=== PATIENT | male | born 1980 | race Caucasian/White ===

== ENCOUNTER 2016-04-20 06:06 | Observation (INO) | payer SELFPAY ==
--- NOTE | ~2016-04-20 | DS ---
Discharge Summary [facility] [address] [place]. [address] NAME: JESSE BARBOZA : 80 STATUS : DIS Colleen PAT#: [id number] AGE: 35 ADM/REG DATE : 04/20/16 MR#: [id number] REPORT SERV DATE: 04/22/16 DICTATED BY: SANJIV BLACKBURN DATE: 04/21/16 REPORT STATUS : Draft TRANSCRIBED BY: MODL DATE: 04/21/16 ADMISSION DATE: 04/20/2016 DISCHARGE DATE: 04/21/2016 DISCHARGE DIAGNOSES: 1. Left arm abscess of unclear etiology. 2. Smoking. CONSULTS: None. PROCEDURES: None. HOSPITAL COURSE: This is a 35-year-old gentleman who was admitted to the hospital with a left arm abscess. For details, please refer to my own H and P from yesterday. In summary, the patient has developed a right arm abscess for unclear reasons. It was I and D'd at an outside ER which after that the patient's symptoms worsened. The patient was admitted with plans for the abscess drainage under CT. However, the patient's abscess started draining a lot more and better after he arrived to the hospital. Throughout the hospital, the patient remained afebrile and the patient's white blood cell count remained normal. The patient's procalcitonin level was also normal. With increasing drainage from the previous I and D site, the redness in his left arm was actually improving spontaneously, even though I held off on giving him any antibiotics until the CT-guided drainage. It was felt that the patient should probably do just fine as an outpatient, continued on p.o. Bactrim that he was already prescribed at home. The patient is thus being discharged home with close outpatient followup instructions. DISCHARGE MEDICATIONS: P.o. Bactrim for a 10-day course. Otherwise, no other medications. DISPOSITION: Discharged to home. FOLLOWUP: Please establish care and be followed as an outpatient in the next one to two weeks. A total of 25 minutes spent in coordinating this patient's discharge today. LILLIE/DONNY Sanjiv Blackburn MD / [id number] CC: Sanjiv Blackburn MD
--- NOTE | ~2016-04-20 | HP ---
History And Physical [address] [place]. [address] NAME: JESSE BARBOZA : 80 STATUS : ADM IN [facility]#: [id number] AGE: 35 ADM/REG DATE : 04/20/16 MR#: [id number] REPORT SERV DATE: 04/20/16 DICTATED BY: SANJIV BLACKBURN DATE: 04/20/16 REPORT STATUS : Draft TRANSCRIBED BY: MODL DATE: 04/20/16 DATE OF ADMISSION: 04/20/2016 CHIEF COMPLAINT: Left arm abscess. HISTORY OF PRESENT ILLNESS: This is a 35-year-old gentleman who is transferred from [facility] with a left arm abscess. The patient first noticed that he had a small abscess on his left arm over the weekend. It progressed to get bigger and more red and tender and thus he went to [facility] ER on Sunday. I and D was performed at bedside in the ER which mainly expressed bloody discharge. The patient was put on p.o. Bactrim and was instructed to return if he got worse. He had total of 4 doses of Bactrim before he realized that his abscess was getting worse. The patient thus came back to the [facility] ER. CT was performed this time around and it showed a 5 x 5 cm abscess in his left arm near the brachiocephalic vein. Transfer request was thus made for him to receive a higher level of care at our facility. Throughout the episode, the patient did not have any fever. The patient did have some chills however. Also, the patient reports that he has not noticed any kind of wounds nearby the area. The patient works in [employer] and he does work and does get superficial scratches here and there from his job but he has not had any puncture wounds. The patient also denies any use of IV drugs. The patient is left handed of note. REVIEW OF SYSTEMS: The patient denies fevers but he did have some chills. Also 14-point review of systems reviewed and negative other than mentioned above. MEDICATIONS: Bactrim only. ALLERGIES: NKDA. PAST MEDICAL HISTORY: None. PAST SURGICAL HISTORY: Left leg Achilles tendon repair. FAMILY HISTORY: Negative. SOCIAL HISTORY: The patient does smoke about one pack per day. The patient otherwise does not drink alcohol or use any illicit drugs. The patient lives at home with his who is at bedside. The patient works for [employer]. PHYSICAL EXAMINATION: VITAL SIGNS: Temperature 98.4, blood pressure 138/79, pulse 83, respiratory rate is 16, and saturating 96% on room air. GENERAL: The patient is alert and oriented x3 with no focal neurologic deficits. The patient is awake, does not appear to be in acute distress, and he is cooperative. NECK: No JVD. No lymphadenopathy. Normal thyroid. CHEST: No midline sternotomy scar and no tenderness to palpation. History And Physical [address] [address] NAME: JESSE BARBOZA : 80 STATUS : ADM IN [facility]#: [id number] AGE: 35 ADM/REG DATE : 04/20/16 MR#: [id number] REPORT SERV DATE: 04/20/16 DICTATED BY: SANJIV BLACKBURN DATE: 04/20/16 REPORT STATUS : Draft TRANSCRIBED BY: MODGala DATE: 04/20/16 LUNGS: Clear to auscultation bilaterally with normal respiratory effort on room air. CARDIOVASCULAR: Regular rate and rhythm with no murmurs, rubs, or gallops, and PMI is nondisplaced. ABDOMEN: Soft, nontender with active bowel sounds and no organomegaly. EXTREMITIES: No edema. Normal distal pulses. No calf tenderness. I do not see any needle clinton or tracking clinton. LABORATORY DATA: Sodium is 137, potassium 3.6, chloride 104, BUN 11, creatinine 1.03, glucose 108, and calcium 8.4. White blood cell count is 9.5, hemoglobin 13.8, and platelets 185. ASSESSMENT: This is a 35-year-old gentleman presenting with a left arm abscess. 1. Left arm abscess of unclear etiology. 2. Smoking. PLAN: The plan is to admit the patient under observation. I will ask IR to drain the abscess and we will send that for culture. I will follow his labs and the patient will be started on empiric antibiotics after IR performs the drainage. Overall the patient is nonseptic and he appears to be quite stable. I expect the patient to be able to be discharged home with p.o. antibiotics once we get the abscess drained by IR. For smoking cessation, counseling was provided. Standard DVT prophylaxis. The patient is full code at this time. The patient does not have a PCP. LILLIE/DONNY Sanjiv Blackburn MD / [id number] CC: Sanjiv Blackburn MD
[~2016-04-20 06:06] MED LIST: BACTRIM1 TAB PO
[2016-04-20 07:41] LABS: BASOPHILS 0.3 %; BASOPHILS ABSOLUTE 0.03 10/3/uL (0.0-0.16); EOSINOPHILS 2.2 %; EOSINOPHILS ABSOLUTE 0.21 10/3/uL (0.0-0.53); HEMATOCRIT 40.6 % (40.0-51.0); HEMOGLOBIN 13.8 g/dL (13.6-17.8); IMMATURE GRANULOCYTES 0.3 %; IMMATURE GRANULOCYTES ABSOLUTE 0.03 10/3/uL (0.0-0.11); LYMPHOCYTES ABSOLUTE 2.55 10/3/uL (0.67-4.30); MEAN CORPUSCULAR HEMOGLOB 29.2 pg (26.0-34.0); MEAN PLATELET VOLUME 9.6 fL (9.2-13.0); MONOCYTES 11.5 %; MONOCYTES ABSOLUTE 1.09 10/3/uL (0.21-1.20); NEUTROPHILS 58.7 %; NEUTROPHILS ABSOLUTE 5.55 10/3/uL (2.02-8.40); PLATELET COUNT 185 10/3/uL (150-400); RBC DISTRIBUTION WIDTH 12.9 % (12.0-16.0); RED CELL COUNT 4.72 10/6/uL (4.7-6.1); WHITE BLOOD CELLS 9.5 10/3/uL (4.5-10.5)
[2016-04-20 07:42] LABS: MANUAL DIFF NO %
[2016-04-20 08:06] LABS: BUN (BLOOD UREA NITROGEN) 11 MG/DL (6-23); CALCIUM, SERUM 8.4 MG/DL (8.5-10.4); CHLORIDE, SERUM 104 MMOL/L (96-112); CO2 (CARBON DIOXIDE) 25 MMOL/L (24-34); CREATININE 1.03 MG/DL (0.70-1.30); GFR AFRICAN AMERICAN 109 ML/MIN (>=60); GFR NON AFRICAN AMERICAN 94 ML/MIN (>=60); GLUCOSE, SERUM 108 MG/DL (60-99); POTASSIUM, SERUM 3.6 MMOL/L (3.5-5.3); SODIUM, SERUM 137 MMOL/L (135-148)
[2016-04-20 16:00] LABS: INTERNATIONAL NORMAL RATI 1.1 UNITS (-); PROTIME (NOT ORD) 13.7 SEC (12.0-14.5)
[2016-04-20 16:01] LABS: PARTIAL THROMBO TIME 66.2 SEC (22.5-37.2)
[2016-04-21 06:52] LABS: BASOPHILS 0.4 %; BASOPHILS ABSOLUTE 0.03 10/3/uL (0.0-0.16); EOSINOPHILS 4.9 %; EOSINOPHILS ABSOLUTE 0.34 10/3/uL (0.0-0.53); HEMATOCRIT 42.8 % (40.0-51.0); HEMOGLOBIN 14.8 g/dL (13.6-17.8); IMMATURE GRANULOCYTES 0.6 %; IMMATURE GRANULOCYTES ABSOLUTE 0.04 10/3/uL (0.0-0.11); LYMPHOCYTES 31.3 %; LYMPHOCYTES ABSOLUTE 2.17 10/3/uL (0.67-4.30); MEAN CORPUS HGB CONC 34.6 g/dL (32.0-36.0); MEAN CORPUSCULAR HEMOGLOB 29.9 pg (26.0-34.0); MEAN CORPUSCULAR VOLUME 86.5 fL (80-100); MEAN PLATELET VOLUME 9.9 fL (9.2-13.0); MONOCYTES 7.2 %; NEUTROPHILS 55.6 %; NEUTROPHILS ABSOLUTE 3.86 10/3/uL (2.02-8.40); PLATELET COUNT 210 10/3/uL (150-400); RBC DISTRIBUTION WIDTH 12.6 % (12.0-16.0); RED CELL COUNT 4.95 10/6/uL (4.7-6.1); WHITE BLOOD CELLS 6.9 10/3/uL (4.5-10.5)
[2016-04-21 06:59] LABS: BUN (BLOOD UREA NITROGEN) 12 MG/DL (6-23); CHLORIDE, SERUM 104 MMOL/L (96-112); CO2 (CARBON DIOXIDE) 26 MMOL/L (24-34); CREATININE 0.94 MG/DL (0.70-1.30); GFR AFRICAN AMERICAN 121 ML/MIN (>=60); GFR NON AFRICAN AMERICAN 105 ML/MIN (>=60); GLUCOSE, SERUM 88 MG/DL (60-99); SODIUM, SERUM 139 MMOL/L (135-148)
[2016-04-21 07:00] LABS: MANUAL DIFF NO %
[2016-04-21 07:03] LABS: POTASSIUM, SERUM 4.4 MMOL/L (3.5-5.3)
[2016-04-21 07:38] LABS: PROCALCITONIN 0.09 ng/mL (<0.5)
[2016-04-21 09:45] LABS: INTERNATIONAL NORMAL RATI 1.1 UNITS (-); PROTIME (NOT ORD) 13.7 SEC (12.0-14.5)
[2016-04-21 09:46] LABS: PARTIAL THROMBO TIME 51.9 SEC (22.5-37.2)
== END 2016-04-21 19:49 | disposition home or self-care (01) ==
LOC: 4SO 06:06
PROVIDERS: Internal Medicine
DX: Z53.9 Procedure and treatment not carried out, unspecified reason (principal); L02.414 Cutaneous abscess of left upper limb; Z79.2 Long term (current) use of antibiotics; Z98.890 Other specified postprocedural states; F17.210 Nicotine dependence, cigarettes, uncomplicated
CPT/HCPCS: 80048; 84145; 85025; 85049; 85576; 85610; 85730; 96372; 96374; A9270-GY; G0378; J3370